=== PATIENT | female | born 1965 | race Caucasian/White ===

== ENCOUNTER 2016-11-15 15:11 | Emergency (ER) | payer BC ==
[~2016-11-15] VITALS: Ht 175.3 cm; Wt 56.7 kg
--- NOTE | 2016-11-15 15:35 | NUR ---
Nursing hands off given to BEVERLY Kaplan.
--- NOTE | 2016-11-15 16:10 | NUR ---
Gave pt RX and d/c instructions, verbalized understanding.
== END 2016-11-15 16:39 | disposition home or self-care (01) ==
LOC: ER 15:12
DX: S06.0X0A Concussion without loss of consciousness, initial encounter (principal); W18.30XA Fall on same level, unspecified, initial encounter; Y93.89 Activity, other specified; Y92.9 Unspecified place or not applicable; Y99.9 Unspecified external cause status
CPT/HCPCS: 70450; A4663

== ENCOUNTER 2017-02-13 14:38 | Inpatient (IN) | payer BC, MEDICAID ==
[~2017-02-13] VITALS: Ht 175.3 cm; Wt 56.7 kg
[2017-02-13] MEDS ORDERED: PANTOPRAZOLE SODIUM 40 MG VIAL IV ONE (15:00)
[2017-02-13] MEDS ORDERED: ONDANSETRON 4 MG/2 ML VIAL IV ONE (15:00)
[2017-02-13] MEDS ORDERED: IV NORMAL SALINE 1000 ML BAG IV ONE (15:00)
--- NOTE | 2017-02-13 15:13 | NUR ---
PT IS IN ROOM #2A. DR LIANG EVALUATED THE PT.
[2017-02-13] MEDS ORDERED: PANTOPRAZOLE SODIUM 40 MG VIAL ONE (15:16)
[2017-02-13] MEDS ORDERED: ONDANSETRON 4 MG/2 ML VIAL ONE ×2 (15:17→19:43)
[2017-02-13 15:27] LABS: BASOPHILS % (AUTO) 1.5 % (0.0-2.0); EOSINOPHILS # (AUTO) 0.1 K/uL (0.0-0.7); EOSINOPHILS % (AUTO) 4.5 % (0.0-7.0); HEMATOCRIT 29.3 % (31.2-41.9); HEMOGLOBIN 9.6 g/dL (10.9-14.3); LYMPHOCYTES # (AUTO) 1.1 K/uL (20.0-40.0); LYMPHOCYTES % (AUTO) 33.5 % (20.5-51.5); MEAN CORPUSCULAR HEMOGLOBIN 26.3 uug (24.7-32.8); MEAN CORPUSCULAR HGB CONC 33 g/dL (32.3-35.6); MEAN CORPUSCULAR VOLUME 80.2 fL (75.5-95.3); MONOCYTES # (AUTO) 0.2 K/uL (2.0-10.0); MONOCYTES % (AUTO) 5.5 % (0.0-11.0); NEUTROPHILS # (AUTO) 1.8 K/uL (1.8-8.9); PLATELET COUNT (AUTO) 205 K/uL (179-408); RED BLOOD CELL COUNT(AUTO) 3.65 MIL/uL (3.63-4.92); WHITE BLOOD COUNT (AUTO) 3.2 K/uL (3.8-11.8)
[2017-02-13 15:44] LABS: CREATININE 0.7 mg/dL (0.6-1.3); POTASSIUM 3.9 mmol/L (3.5-5.1)
[2017-02-13 15:55] LABS: BILIRUBIN,DIRECT 0.1 mg/dL (0.0-0.2); BILIRUBIN,TOTAL 0.2 mg/dL (0.2-1.0)
[2017-02-13] MEDS ORDERED: FAMOTIDINE. 20 MG/2 ML VIAL IV ONE ×2 (16:00→16:21)
[2017-02-13] MEDS ORDERED: HYDROMORPHONE 1 MG/1 ML DISP.SYRIN IV ONE ×3 (16:00→19:30)
--- NOTE | 2017-02-13 16:16 | NUR ---
PT IS IN ROOM #2A. DR LIANG EVALUATED THE PT.
[2017-02-13] MEDS ORDERED: HYDROMORPHONE 2 MG/1 ML DISP.SYRIN ONE ×3 (16:21→19:43)
--- NOTE | 2017-02-13 17:02 | NUR ---
DR ESQUEDA AND DR RAYMUNDO WERE CALLED. DR LIANG TALKED TO THEM TO DISCUSS PT'S DIAGNOSIS.
--- NOTE | 2017-02-13 18:04 | NUR ---
PICC LINE BEVERLY COSTA WAS CALLED. HIS KALPESH IS 1 HOUR. PT IS RESTING IN BED COMFORTABLY. NO S/S OF ACUTE DISTRESS.
--- NOTE | 2017-02-13 18:53 | NUR ---
PICC LINE BEVERLY COSTA INSERTED MIDDLE LINE IN PT'S RIGHT UPPER ARM. PT TOLERATED TO PROCEDURE WITHOUT COMP[LICATIONS.
--- NOTE | 2017-02-13 19:22 | NUR ---
Assumed care of patient. No acute distress noted. Patient states she had an episode of vomiting blood x 1. ER MD aware
--- NOTE | 2017-02-13 19:25 | NUR ---
Assumed care of patient. No acute distress noted.
[2017-02-13] MEDS ORDERED: ONDANSETRON IV *ER 4 MG/2 ML VIAL IV ONE (19:30)
[2017-02-13 20:00] VITALS: BP 101/34
[2017-02-13] MEDS ORDERED: Z GUARD REMEDY PASTE 57 GM TUBE TOP PRN (20:00)
[2017-02-13] MEDS ORDERED: MAGNESIUM HYDROXIDE 30 ML LIQUID UDC PO PRN (20:00)
--- NOTE | 2017-02-13 20:07 | NUR ---
REPORT GIVEN TO MADDISON PAUL ON MED SURG.
--- NOTE | 2017-02-13 20:17 | NUR ---
Pt. admitted to Med Surg , under care of Dr. Oral Castillo Belongs List completed
--- NOTE | 2017-02-13 22:00 | NUR ---
CALLED DR. JOSE ANGEL MARIA REGARDING REQUESTING FOR IV PAIN MEDS, WITH ORDER MORPHINE 2MG IV Q 4 PRN, NOTIFY THE PATIENT OKEYED THE MORPHINE.
[2017-02-13] MEDS: MORPHINE SULFATE 2 MG/1 ML DISP.SYRIN IM PRN (22:30)
[2017-02-13] MEDS: ONDANSETRON 4 MG/2 ML VIAL IV PRN (22:35)
[2017-02-13] MEDS ORDERED: MORPHINE SULFATE 2 MG/1 ML DISP.SYRIN ONE (22:44)
[2017-02-14] MEDS: MORPHINE SULFATE 2 MG/1 ML DISP.SYRIN IM PRN (02:59)
[2017-02-14] MEDS ORDERED: MORPHINE SULFATE 2 MG/1 ML DISP.SYRIN ONE (03:10)
[2017-02-14 05:15] VITALS: BP 91/51
--- NOTE | 2017-02-14 06:46 | NUR ---
PATIENT ALERT ORIENTED ABLE TO MAKE NEEDS, KNOWN, NO FURTHER EPISODE OF NAUSEA NOTED, CONT ON PAIN MANAGEMENT, CONSENT SIGNED FOR EGD, AND REMAINS NPO FOR EGD PROCEDURES, ENDORSED TO AM TO COLLECT URINE. CALL LIGHT WITHIN REACH.
[2017-02-14 07:00] VITALS: BP 95/45
[2017-02-14] MEDS: MORPHINE SULFATE 4 MG/1 ML DISP.SYRIN IM PRN ×4 (07:24→20:20)
[2017-02-14 08:30] LABS: EOSINOPHILS # (AUTO) 0.2 K/uL (0.0-0.7); LYMPHOCYTES # (AUTO) 1.4 K/uL (20.0-40.0); MONOCYTES # (AUTO) 0.2 K/uL (2.0-10.0)
[2017-02-14 08:36] LABS: BASOPHILS % (AUTO) 1.2 % (0.0-2.0); EOSINOPHILS % (AUTO) 6.9 % (0.0-7.0); LYMPHOCYTES % (AUTO) 49.4 % (20.5-51.5); MEAN CORPUSCULAR HEMOGLOBIN 26.3 uug (24.7-32.8); MEAN CORPUSCULAR HGB CONC 33 g/dL (32.3-35.6); MEAN CORPUSCULAR VOLUME 80.9 fL (75.5-95.3); MONOCYTES % (AUTO) 6.2 % (0.0-11.0); NEUTROPHILS # (AUTO) 1.1 K/uL (1.8-8.9); NEUTROPHILS % (AUTO) 36.3 % (38.5-71.5); PLATELET COUNT (AUTO) 158 K/uL (179-408); RED BLOOD CELL COUNT(AUTO) 2.85 MIL/uL (3.63-4.92); WHITE BLOOD COUNT (AUTO) 2.9 K/uL (3.8-11.8)
[2017-02-14 08:45] LABS: HEMATOCRIT 23.1 % (31.2-41.9); HEMOGLOBIN 7.5 g/dL (10.9-14.3)
[2017-02-14 09:01] LABS: BAND % (MANUAL) 1 % (0-10); EOSINOPHILS % (MANUAL) 11 % (0-8); LYMPHOCYTES % (MANUAL) 49 % (20-40); MONOCYTES % (MANUAL) 6 % (2-10); NEUTROPHILS % (MANUAL) 33 % (42-75)
[2017-02-14] MEDS: SUCRALFATE 1 G/10 ML LIQUID UDC PO SCH ×2 (11:52→18:00)
[2017-02-14 12:03] LABS: *BLOOD, URINE NEGATIVE (NEGATIVE); *CLARITY,URINE CLEAR (CLEAR); *COLOR,URINE YELLOW (YELLOW); *KETONES,URINE NEGATIVE (NEGATIVE); *PROTEIN,URINE NEGATIVE (NEGATIVE); *UROBILINOGEN,URINE 0.2 E.U./dl (NORMAL); LEUKOCYTE ESTERASE ,URINE NEGATIVE (NEGATIVE); NITRITE, URINE NEGATIVE (NEGATIVE); UGLUCOSE NEGATIVE (NEGATIVE)
[2017-02-14 12:28] LABS: *BILIRUBIN,URIN 1+ (NEGATIVE)
[2017-02-14 12:33] LABS: BACTERIA,URINE FEW /HPF (NONE SEEN); RBC,URINE 0-3 /HPF (0-3); SQUAMOUS EPITHELIAL CELL,UR MODERATE /HPF (NONE SEEN); WBC,URINE 0-3 /HPF (0-3)
[2017-02-14 13:16] LABS: CREATININE 0.6 mg/dL (0.6-1.3); MAGNESIUM 1.9 mg/dL (1.8-2.4); PHOSPHOROUS 4.6 mg/dL (2.5-4.9); POTASSIUM 3.7 mmol/L (3.5-5.1)
[2017-02-14 13:30] VITALS: BP 105/55
[2017-02-14] MEDS: ONDANSETRON 4 MG/2 ML VIAL IV PRN ×2 (15:00→20:19)
[2017-02-14 15:30] VITALS: BP 108/61
[2017-02-14] MEDS ORDERED: LIDOCAINE HCL 2% 20 ML VIAL MC ONE (15:57)
[2017-02-14] MEDS ORDERED: IV NORMAL SALINE 1000 ML BAG IV ONE (15:57)
[2017-02-14] MEDS ORDERED: PROPOFOL 200 MG/20 ML BOTTLE IV ONE (15:57)
[2017-02-14 20:00] VITALS: BP 105/67
[2017-02-14] MEDS: PANTOPRAZOLE SODIUM 40 MG VIAL IV SCH (21:00)
[2017-02-14 23:50] VITALS: BP 98/58
[2017-02-15] MEDS: MORPHINE SULFATE 4 MG/1 ML DISP.SYRIN IM PRN ×6 (00:08→21:11)
[2017-02-15 00:10] VITALS: BP 104/60
[2017-02-15] MEDS: SUCRALFATE 1 G/10 ML LIQUID UDC PO SCH ×4 (00:51→17:17)
[2017-02-15 02:30] VITALS: BP 102/60
[2017-02-15] MEDS: HYDROCODONE/APAP 5-325MG TABLET PO PRN (05:47)
--- NOTE | 2017-02-15 05:48 | NUR ---
remain c/o abd pain 6-10 after given m/s 2g ivp at 0400 given one tab norco po. denies n/v at this time.Given 1 unit of prbc. am labs drawn from midline by Rn. remains on clear liquid diet.
[2017-02-15 06:56] LABS: BASOPHILS % (AUTO) 1.2 % (0.0-2.0); EOSINOPHILS # (AUTO) 0.2 K/uL (0.0-0.7); EOSINOPHILS % (AUTO) 5.3 % (0.0-7.0); LYMPHOCYTES # (AUTO) 1.3 K/uL (20.0-40.0); LYMPHOCYTES % (AUTO) 41.9 % (20.5-51.5); MEAN CORPUSCULAR HEMOGLOBIN 26.4 uug (24.7-32.8); MEAN CORPUSCULAR HGB CONC 33 g/dL (32.3-35.6); MEAN CORPUSCULAR VOLUME 80.3 fL (75.5-95.3); MONOCYTES # (AUTO) 0.2 K/uL (2.0-10.0); MONOCYTES % (AUTO) 7.3 % (0.0-11.0); NEUTROPHILS # (AUTO) 1.4 K/uL (1.8-8.9); NEUTROPHILS % (AUTO) 44.3 % (38.5-71.5); PLATELET COUNT (AUTO) 161 K/uL (179-408); WHITE BLOOD COUNT (AUTO) 3.2 K/uL (3.8-11.8)
[2017-02-15 06:58] VITALS: BP 106/57
[2017-02-15 06:59] LABS: CREATININE 0.6 mg/dL (0.6-1.3); MAGNESIUM 1.8 mg/dL (1.8-2.4); PHOSPHOROUS 4.2 mg/dL (2.5-4.9); POTASSIUM 3.3 mmol/L (3.5-5.1)
[2017-02-15 07:11] LABS: HEMATOCRIT 27.3 % (31.2-41.9)
[2017-02-15] MEDS: PANTOPRAZOLE SODIUM 40 MG VIAL IV SCH (08:23)
--- NOTE | 2017-02-15 08:24 | NUR ---
Protonix not given due to patient stating she gets swollen throat and SOB from previous Protonix given.
[2017-02-15] MEDS ORDERED: POTASSIUM CHLORIDE 20 MEQ TAB.PRT.SR PO ONE (10:30)
[2017-02-15] MEDS: FAMOTIDINE. 20 MG/2 ML VIAL IV SCH ×2 (11:00→21:11)
[2017-02-15] MEDS: ALPRAZOLAM 0.5 MG TABLET PO PRN ×2 (11:00→21:28)
[2017-02-15 11:44] VITALS: BP 124/67
[2017-02-15] MEDS: OCTREOTIDE ACETATE DRIP 1,250 MCG in IV NORMAL SALINE 247.5 ML IV PRN (11:48)
[2017-02-15 15:49] VITALS: BP 93/58
--- NOTE | 2017-02-15 16:33 | NUR ---
CONTINUE WITH SANDOSTATIN DRIP, CLOSELY MONITORED FOR BLEEDING
[2017-02-15 20:45] VITALS: BP 106/67
[2017-02-15] MEDS ORDERED: PANTOPRAZOLE SODIUM 40 MG VIAL IV SCH (21:00)
[2017-02-16] MEDS: SUCRALFATE 1 G/10 ML LIQUID UDC PO SCH ×5 (00:13→23:46)
[2017-02-16] MEDS: MORPHINE SULFATE 4 MG/1 ML DISP.SYRIN IM PRN ×3 (01:24→08:37)
--- NOTE | 2017-02-16 03:28 | NUR ---
SLEPT AT LONG INTERVALS.MEDICATED WITH MORPHINE 2 MG Q 4 HOURS.IN NO ACUTE DISTRESS.SANDOSTATIN INFUSING AT 10 CC /HR.
[2017-02-16 04:00] VITALS: BP 110/64
[2017-02-16] MEDS: ALPRAZOLAM 0.5 MG TABLET PO PRN ×3 (06:27→20:50)
[2017-02-16 07:16] LABS: BASOPHILS % (AUTO) 1.2 % (0.0-2.0); EOSINOPHILS # (AUTO) 0.2 K/uL (0.0-0.7); EOSINOPHILS % (AUTO) 4.3 % (0.0-7.0); HEMATOCRIT 29.4 % (31.2-41.9); HEMOGLOBIN 9.4 g/dL (10.9-14.3); LYMPHOCYTES % (AUTO) 25.8 % (20.5-51.5); MEAN CORPUSCULAR HGB CONC 32 g/dL (32.3-35.6); MEAN CORPUSCULAR VOLUME 81.4 fL (75.5-95.3); MONOCYTES # (AUTO) 0.3 K/uL (2.0-10.0); MONOCYTES % (AUTO) 7.2 % (0.0-11.0); NEUTROPHILS # (AUTO) 2.4 K/uL (1.8-8.9); NEUTROPHILS % (AUTO) 61.5 % (38.5-71.5); PLATELET COUNT (AUTO) 156 K/uL (179-408); RED BLOOD CELL COUNT(AUTO) 3.61 MIL/uL (3.63-4.92); WHITE BLOOD COUNT (AUTO) 3.9 K/uL (3.8-11.8)
[2017-02-16 07:30] LABS: CREATININE 0.7 mg/dL (0.6-1.3)
--- NOTE | 2017-02-16 08:00 | NUR ---
STILL C/O OF ON AND OFF ABDOMINAL PAIN AND VOMITING BLOOD. CONTINUE PAIN MGT AND OBSERVATION
[2017-02-16] MEDS: FAMOTIDINE. 20 MG/2 ML VIAL IV SCH ×2 (08:33→20:50)
--- NOTE | 2017-02-16 11:00 | NUR ---
SEEN BY SOFTWARE QUALITY ANALYST HOSPITALIST WITH ORDERS
[2017-02-16] MEDS ORDERED: VASOPRESSIN 50 UNIT in IV DEXTROSE 5% 500 ML IV PRN (11:45)
[2017-02-16 11:49] VITALS: BP 119/72
[2017-02-16] MEDS: HYDROMORPHONE 1 MG/1 ML DISP.SYRIN IV PRN ×6 (12:33→23:58)
[2017-02-16] MEDS: OCTREOTIDE ACETATE DRIP 1,250 MCG in IV NORMAL SALINE 247.5 ML IV PRN (12:34)
--- NOTE | 2017-02-16 13:36 | NUR ---
DR HANDY NOTIFIED OF PT STILL VOMITING BLOOD AND SEVER PAIN OVER ABDOMEN WITH ORDERS. KEPT NPO, CONSENT FOR EGD IN AM AND WILL START LR AT 75 ML/HR. NURSING CURTAIN ROLLER ASSEMBLER NOTIFIED
[2017-02-16] MEDS: IV LACTATED RINGERS SOLUTION 1,000 ML IV PRN (14:31)
[2017-02-16 16:00] VITALS: BP 112/59
[2017-02-16 17:30] LABS: BASOPHILS % (AUTO) 1.2 % (0.0-2.0); EOSINOPHILS # (AUTO) 0.2 K/uL (0.0-0.7); HEMATOCRIT 28.1 % (31.2-41.9); HEMOGLOBIN 8.9 g/dL (10.9-14.3); LYMPHOCYTES # (AUTO) 1.3 K/uL (20.0-40.0); MEAN CORPUSCULAR HEMOGLOBIN 25.6 uug (24.7-32.8); MEAN CORPUSCULAR HGB CONC 32 g/dL (32.3-35.6); MEAN CORPUSCULAR VOLUME 81.2 fL (75.5-95.3); MONOCYTES # (AUTO) 0.3 K/uL (2.0-10.0); MONOCYTES % (AUTO) 7.9 % (0.0-11.0); NEUTROPHILS # (AUTO) 1.5 K/uL (1.8-8.9); NEUTROPHILS % (AUTO) 46.9 % (38.5-71.5); PLATELET COUNT (AUTO) 152 K/uL (179-408); RED BLOOD CELL COUNT(AUTO) 3.46 MIL/uL (3.63-4.92); WHITE BLOOD COUNT (AUTO) 3.3 K/uL (3.8-11.8)
--- NOTE | 2017-02-16 18:33 | NUR ---
KEPT NPO FOR EGD IN AM AT [address] HANDY
[2017-02-16 20:00] VITALS: BP 121/64
[2017-02-16] MEDS: ONDANSETRON 4 MG/2 ML VIAL IV PRN (23:47)
[2017-02-17] VITALS (7 sets, daily range): BP systolic 99–112; BP diastolic 28–76
[2017-02-17] MEDS: HYDROMORPHONE 1 MG/1 ML DISP.SYRIN IV PRN ×8 (02:06→22:38)
[2017-02-17] MEDS: ALPRAZOLAM 0.5 MG TABLET PO PRN ×4 (04:05→23:22)
[2017-02-17] MEDS: IV LACTATED RINGERS SOLUTION 1,000 ML IV PRN ×3 (04:15→22:53)
[2017-02-17] MEDS: SUCRALFATE 1 G/10 ML LIQUID UDC PO SCH ×3 (06:00→18:00)
--- NOTE | 2017-02-17 06:39 | NUR ---
PATIENT WAS AWAKE FOR MOST OF THE NIGHT. REQUESTED DILAUDID IV Q2 HOURS FOR ABDOMINAL PAIN. PATIENT WAS ALSO AMBULATING INDEPENDENTLY AROUND THE UNIT EVERY 2 HOURS. AT TIMES PATIENT WAS REQUESTING PAIN MEDICATION 15-30 MINUTES AFTER ADMINISTRATION. PATIENT STATES PAIN WAS CONSISTENTLY AROUND 8-9 OUT OF 10. MOST TIMES PATIENT WAS USING HER CELL PHONE OR AMBULATING THE HALLS WITHOUT PROBLEM. NONVERBAL PAIN CUES INCLUDED FACIAL GRIMACING AND OCCASIONAL MOANING FROM THE PATIENT. PATIENT HAD 3 EPISODES OF VOMITING BRIGHT RED BLOOD. ZOFRAN WAS ADMINISTERED AND WAS EFFECTIVE FOR ABOUT 3 HOURS BEFORE PATIENT STARTED VOMITING AGAIN. PATIENT FELL ASLEEP AT APPROXIMATELY 0530 AND CONTINUES TO BE ASLEEP AT THIS TIME. VITAL SIGNS STABLE. WILL HAVE EGD PROCEDURE AT 0900.
[2017-02-17] MEDS: FAMOTIDINE. 20 MG/2 ML VIAL IV SCH ×2 (08:47→20:46)
[2017-02-17 08:59] LABS: CREATININE 0.7 mg/dL (0.6-1.3); PHOSPHOROUS 4.6 mg/dL (2.5-4.9); POTASSIUM 3.9 mmol/L (3.5-5.1)
[2017-02-17 09:16] LABS: EOSINOPHILS # (AUTO) 0.1 K/uL (0.0-0.7); HEMOGLOBIN 8.4 g/dL (10.9-14.3); MEAN CORPUSCULAR VOLUME 81.3 fL (75.5-95.3); MONOCYTES # (AUTO) 0.2 K/uL (2.0-10.0); PLATELET COUNT (AUTO) 140 K/uL (179-408)
[2017-02-17 09:31] LABS: EOSINOPHILS % (AUTO) 5.3 % (0.0-7.0); HEMATOCRIT 25.9 % (31.2-41.9); LYMPHOCYTES % (AUTO) 43.6 % (20.5-51.5); MEAN CORPUSCULAR HEMOGLOBIN 26.3 uug (24.7-32.8); MEAN CORPUSCULAR HGB CONC 32 g/dL (32.3-35.6); MONOCYTES % (AUTO) 8.6 % (0.0-11.0); NEUTROPHILS % (AUTO) 41.5 % (38.5-71.5); RED BLOOD CELL COUNT(AUTO) 3.19 MIL/uL (3.63-4.92)
[2017-02-17 09:32] LABS: WHITE BLOOD COUNT (AUTO) 2.4 K/uL (3.8-11.8)
[2017-02-17 12:50] LABS: BASOPHILS % (MANUAL) 1 % (0-2); EOSINOPHILS % (MANUAL) 2 % (0-8); LYMPHOCYTES % (MANUAL) 41 % (20-40); METAMYELOCYTES % 1 % (0-1); MONOCYTES % (MANUAL) 9 % (2-10); NEUTROPHILS % (MANUAL) 46 % (42-75)
[2017-02-17] MEDS: ONDANSETRON 4 MG/2 ML VIAL IV PRN (13:02)
[2017-02-17] MEDS: OCTREOTIDE ACETATE DRIP 1,250 MCG in IV NORMAL SALINE 247.5 ML IV PRN (14:34)
--- NOTE | 2017-02-17 15:00 | NUR ---
Nurses Note: Patient was nauseous, and she vomited in toilet. SPRINKLER FITTER APPRENTICE Maribel observed the vomit, she states it was bright red blood, she flushed the vomit. CBC is ordered stat. Patient was having watery stools this morning, prior to going to EGD. Patient had EGD with cauterization. Vital signs was stable. Addendum: 02/17/17 at 2011 by ERICA LUCIA RN SPRINKLER FITTER APPRENTICE was Bridgette Gonsalez that observed the bloody emesis. Not Maribel.
[2017-02-17] MEDS ORDERED: HYDROMORPHONE 2 MG/1 ML DISP.SYRIN IV ONE (16:15)
[2017-02-17] MEDS ORDERED: FAMOTIDINE. 20 MG/2 ML VIAL IV SCH (16:15)
[2017-02-17 18:49] LABS: BASOPHILS % (AUTO) 0.9 % (0.0-2.0); EOSINOPHILS # (AUTO) 0.1 K/uL (0.0-0.7); EOSINOPHILS % (AUTO) 3.6 % (0.0-7.0); HEMATOCRIT 23.9 % (31.2-41.9); HEMOGLOBIN 7.8 g/dL (10.9-14.3); LYMPHOCYTES # (AUTO) 0.8 K/uL (20.0-40.0); LYMPHOCYTES % (AUTO) 25.8 % (20.5-51.5); MEAN CORPUSCULAR HEMOGLOBIN 26.4 uug (24.7-32.8); MEAN CORPUSCULAR HGB CONC 33 g/dL (32.3-35.6); MEAN CORPUSCULAR VOLUME 80.5 fL (75.5-95.3); MONOCYTES # (AUTO) 0.2 K/uL (2.0-10.0); MONOCYTES % (AUTO) 7.5 % (0.0-11.0); NEUTROPHILS % (AUTO) 62.2 % (38.5-71.5); PLATELET COUNT (AUTO) 133 K/uL (179-408); RED BLOOD CELL COUNT(AUTO) 2.96 MIL/uL (3.63-4.92); WHITE BLOOD COUNT (AUTO) 3.2 K/uL (3.8-11.8)
--- NOTE | 2017-02-17 19:40 | NUR ---
Nurses Notes: Patient's pain is 8/10, lessen when not vomiting, medicated with Dilaudid 1 mg IV push, slowly over few minutes, Patient is not nauseous, but asking for apple juice. Patient to have clear liquids, and advance to regular diet tomorrow. Remains on IV Lactated Ringers at 75 cc per hour, Octreotide is infusing at 10 cc per hour. Patient is refusing Carafate, patient states anything taken by mouth, she will vomit.
--- NOTE | 2017-02-17 20:00 | NUR ---
PT AWAKE, ALERT AND ORIENTED. PT SAID SHE'S IN PAIN. VITAL SIGNS WNL. IV SITE INTACT AND PATENT. CALL LIGHT WITHIN REACH. SAFETY AND COMFORT PROVIDED.
--- NOTE | 2017-02-17 20:50 | NUR ---
CALLED ON THE PHONE TO CHECKUP ON THE PT. HE ALSO TALKED TO THE PT. TOLD ME TO GIVE XANAX Q6H PRN. WILL CONTINUE TO MONITOR THE PT.
[2017-02-18] VITALS (8 sets, daily range): BP systolic 102–126; BP diastolic 42–74
[2017-02-18] MEDS: SUCRALFATE 1 G/10 ML LIQUID UDC PO SCH ×5 (00:44→23:43)
[2017-02-18] MEDS: HYDROMORPHONE 1 MG/1 ML DISP.SYRIN IV PRN ×10 (00:55→23:37)
[2017-02-18] MEDS: ALPRAZOLAM 0.5 MG TABLET PO PRN ×4 (02:57→21:53)
--- NOTE | 2017-02-18 07:00 | NUR ---
PT ASK FOR PAIN MEDS. SHOWS NO SIGNS OF DISTRESS. ENDORSED TO DAYSHIFT NURSE.
--- NOTE | 2017-02-18 07:30 | NUR ---
RECEIVED PATIENT ON BEDF ASLEEP, A AND O X 4 NO ACUTED DISTRESS NOTED. HAS MIDLINE ON THE LEFT UPPER ARM AND IV ACCESS ON THE LEFT HAND, BOTH INTACT AND PATENT. C/O LOWER STOMACH PAIN HAS DILAUDID IV PRN Q 2HRS. ALL COMFORT MEASURES PROVIDED. ALL NEEDS ANTICIPATED AND ATTENDED. CALL LIGHT WITHIN REACH AND ANSWERED IN A TIMELY MANNER. WILL CONTINUE TO MONITOR CLOSELY.
[2017-02-18] MEDS: FAMOTIDINE. 20 MG/2 ML VIAL IV SCH ×2 (08:13→20:29)
[2017-02-18] MEDS: IV LACTATED RINGERS SOLUTION 1,000 ML IV PRN (13:58)
[2017-02-18] MEDS: ACETAMINOPHEN 325 MG TABLET PO PRN (20:41)
[2017-02-18] MEDS: OCTREOTIDE ACETATE DRIP 1,250 MCG in IV NORMAL SALINE 247.5 ML IV PRN (21:04)
--- NOTE | 2017-02-18 22:10 | NUR ---
PT'S A/A/O X4;DENIED OF PAIN OR ANY DISCOMFORT.PT'S ON SANDOSTATIN( RECORD) AT RIGHT HAND AND STARTED PRBC 1 UNIT TRANSFUSION AT MID-LINE @ RT.UPPER ARM ( ORDER )AT THIS TIME;EDUCATED TO PT;SHE VERBALIZED UNDERSTANDING AND COOPERATIVE NOTED.NO N/V WAS SEEN AT THIS TIME.CONTINUED MONITORING TO PT.PAIN MANAGEMENT.UPDATED THE PLAN OF CARE TO PT;SHE VERBALIZED UNDERSTANDING AND COOPERATIVE NOTED.
[2017-02-19] MEDS: ONDANSETRON 4 MG/2 ML VIAL IV PRN ×2 (01:37→20:00)
[2017-02-19] MEDS: HYDROMORPHONE 1 MG/1 ML DISP.SYRIN IV PRN ×6 (01:38→20:00)
[2017-02-19 01:45] VITALS: BP 115/65
--- NOTE | 2017-02-19 01:45 | NUR ---
BLOOD TRANSFUSION OF PRBC 1 UNIT WAS DONE AT THIS TIME;PT TOLERATED WELL NOTED.KEPT COMFORT.MAINTAINED IVF W/LR AND PT'S ON SANDOSTATIN (TOTAL X2 LINES) NOTED.CALL-LIGHT WITHIN REACH.
[2017-02-19 04:52] VITALS: BP 128/77
[2017-02-19] MEDS: SUCRALFATE 1 G/10 ML LIQUID UDC PO SCH ×5 (05:38→23:10)
[2017-02-19] MEDS: IV LACTATED RINGERS SOLUTION 1,000 ML IV PRN (06:09)
--- NOTE | 2017-02-19 06:30 | NUR ---
PT'S COMFORTABLE ON BED AT THIS TIME.NO DISTRESS NOTED IN THE SHIFT.PAIN'S CONTROLLED IN THE SHIFT MD'S ORDER TO GET DILAUDID Q 2HOURS(SEE RECORD).PT HAD NAUSEA/VOMITING X1 IN THE SHIFT NOTED.
--- NOTE | 2017-02-19 07:30 | NUR ---
RECEIVED PATIENT ON BED ASLLEP A AND O X 4 NO ACUTE DISTRESS NOTED. WITH MIDLINE ON FAWN AND PERIPHERAL LINE ON RH #22 BOTH INTACT AND PATENT. INDEPENDENT WITH NEEDS AND ADL'S COMPLAINS OF LOWER ABDOMINAL PAIN, WITH DILAUDID 1MG Q2 PRN. COMPLAINS OF SOME NAUSEA ALL COMFORT MEASURES PROVIDED. ALL NEEDS ATTENDED AND ANTICIPATED. CALL LIGHT WITHIN REACH AND ANSWERED IN A TIMELY MANNER. WILL CONTINUE TO MONITOR CLOSELY
[2017-02-19] MEDS: FAMOTIDINE. 20 MG/2 ML VIAL IV SCH ×2 (08:31→20:03)
[2017-02-19 09:30] LABS: BILIRUBIN,TOTAL 0.7 mg/dL (0.2-1.0); CREATININE 0.8 mg/dL (0.6-1.3); MAGNESIUM 1.4 mg/dL (1.8-2.4); PHOSPHOROUS 2.2 mg/dL (2.5-4.9); POTASSIUM 2.9 mmol/L (3.5-5.1); TOTAL PROTEIN, SERUM 5.9 g/dL (6.4-8.2)
[2017-02-19 10:01] LABS: BASOPHILS % (AUTO) 0.6 % (0.0-2.0); EOSINOPHILS % (AUTO) 0.5 % (0.0-7.0); LYMPHOCYTES # (AUTO) 0.3 K/uL (20.0-40.0); LYMPHOCYTES % (AUTO) 5.7 % (20.5-51.5); MEAN CORPUSCULAR HEMOGLOBIN 26.9 uug (24.7-32.8); MEAN CORPUSCULAR HGB CONC 33 g/dL (32.3-35.6); MEAN CORPUSCULAR VOLUME 81.1 fL (75.5-95.3); MONOCYTES # (AUTO) 0.2 K/uL (2.0-10.0); MONOCYTES % (AUTO) 3.3 % (0.0-11.0); NEUTROPHILS # (AUTO) 4.2 K/uL (1.8-8.9); NEUTROPHILS % (AUTO) 89.9 % (38.5-71.5); PLATELET COUNT (AUTO) 105 K/uL (179-408); RED BLOOD CELL COUNT(AUTO) 3.84 MIL/uL (3.63-4.92)
[2017-02-19 10:13] LABS: HEMOGLOBIN 10.3 g/dL (10.9-14.3); WHITE BLOOD COUNT (AUTO) 4.7 K/uL (3.8-11.8)
[2017-02-19 10:14] LABS: HEMATOCRIT 31.2 % (31.2-41.9)
--- NOTE | 2017-02-19 10:39 | NUR ---
PATIENT NOTED WITH TEMPERATURE OF 103.6F, INFORMED DR. HERNANDEZ, WITH ORDERS FOR CXR, UA, URINE CULTURE, RAPID INFLUENZA. NOTED AND CARRIED OUT.
[2017-02-19] MEDS ORDERED: ACETAMINOPHEN 650 MG SUPP.RECT RC PRN (11:15)
[2017-02-19 11:45] VITALS: BP 102/58
[2017-02-19] MEDS: MAGNESIUM SULFATE/D5W 100 ML IV SCH ×3 (13:32→15:22)
[2017-02-19] MEDS: POTASSIUM PHOSPHATE MM 5 MMOL in IV DEXTROSE 5% 100 ML IV SCH ×4 (13:32→23:11)
[2017-02-19] MEDS: ALPRAZOLAM 0.5 MG TABLET PO PRN ×2 (13:51→21:31)
--- NOTE | 2017-02-19 14:30 | NUR ---
LAB ROBYN BLOOD SPECIMEN FOR BLOOD CULTURE AND OTHER PERTINENT LABS.
[2017-02-19 15:47] VITALS: BP 88/38
--- NOTE | 2017-02-19 16:02 | NUR ---
patient noted with temperature of 102.3F administered tylenol 650mg suppository. Will continiue to monitor.
--- NOTE | 2017-02-19 17:48 | NUR ---
Spoke with RN regarding advancement of diet NPO for the past 3 days, patient asking for food Patient on K repletion, IV dextrose Recommend start full liquid diet if passes swallow evaluation and ok per Monitor leatha Addendum: 02/21/17 at [address] Amended: Links added.
[2017-02-19] MEDS: OCTREOTIDE ACETATE DRIP 1,250 MCG in IV NORMAL SALINE 247.5 ML IV PRN (18:36)
[2017-02-19 18:40] LABS: *BILIRUBIN,URIN NEGATIVE (NEGATIVE); *BLOOD, URINE NEGATIVE (NEGATIVE); *CLARITY,URINE CLEAR (CLEAR); *COLOR,URINE YELLOW (YELLOW); *KETONES,URINE NEGATIVE (NEGATIVE); *PROTEIN,URINE NEGATIVE (NEGATIVE); LEUKOCYTE ESTERASE ,URINE NEGATIVE (NEGATIVE); NITRITE, URINE NEGATIVE (NEGATIVE); UGLUCOSE NEGATIVE (NEGATIVE)
[2017-02-19] MEDS ORDERED: IV NORMAL SALINE 500 ML IV ONE (19:00)
[2017-02-19 19:06] LABS: MUCUS,URINE FEW /LPF (0-FEW); SQUAMOUS EPITHELIAL CELL,UR MODERATE /HPF (NONE SEEN); WBC,URINE 0-3 /HPF (0-3)
--- NOTE | 2017-02-19 19:30 | NUR ---
nsg: pt vomitted dark red blood, 100ml notified Dr. Raines. no new order received.
[2017-02-19 20:30] VITALS: BP 91/67
--- NOTE | 2017-02-20 00:20 | NUR ---
nsg: pt has a temp of 102.2F oral. medicated with tylenol 650mg po. applied cooling measures. will recheck temp.
[2017-02-20 00:25] VITALS: BP 103/48
[2017-02-20] MEDS: ACETAMINOPHEN 325 MG TABLET PO PRN ×2 (00:27→11:17)
[2017-02-20] MEDS: HYDROMORPHONE 1 MG/1 ML DISP.SYRIN IV PRN ×8 (00:27→18:55)
[2017-02-20] MEDS: IV LACTATED RINGERS SOLUTION 1,000 ML IV PRN (02:37)
[2017-02-20 04:00] VITALS: BP 101/57
--- NOTE | 2017-02-20 05:55 | NUR ---
nsg: pt comfortable sleeping. received dilaudid 0.5mg ivp x 4 doses throughout this shift. bp low 100's sbp. still npo except meds. vomitted dark red blood x 1. cont to monitor.
[2017-02-20] MEDS: SUCRALFATE 1 G/10 ML LIQUID UDC PO SCH ×3 (06:45→17:55)
[2017-02-20] MEDS ORDERED: BARIUM SULFATE 450 ML ORAL.SUSP ONE (07:09)
[2017-02-20] MEDS ORDERED: IV NORMAL SALINE 250 ML IV ONE (07:18)
[2017-02-20] MEDS ORDERED: IOHEXOL 300MG/ML 100 ML INFUS..BTL ONE (07:18)
[2017-02-20] MEDS: FAMOTIDINE. 20 MG/2 ML VIAL IV SCH ×2 (08:03→20:59)
[2017-02-20] MEDS: ALPRAZOLAM 0.5 MG TABLET PO PRN ×2 (08:43→16:04)
--- NOTE | 2017-02-20 09:00 | NUR ---
Pt left the floor for CT abd/pelvis with radiology via wheelchair. Pt stable and nad upon leaving the floor.
--- NOTE | 2017-02-20 09:30 | NUR ---
Pt returned to the floor from CT abd/pelvis. Pt stable and nad noted upon returning to the floor.
[2017-02-20] MEDS ORDERED: PROPOFOL 200 MG/20 ML BOTTLE IV ONE (09:40)
[2017-02-20] MEDS ORDERED: LIDOCAINE HCL 2% 20 ML VIAL MC ONE (09:40)
[2017-02-20 11:39] VITALS: BP 115/63
--- NOTE | 2017-02-20 13:07 | NUR ---
PHARMACY CLINICAL NOTES (VANCOMYCIN DOSING) S: 51 YO female admitted for GI bleed; MD ordered IV vancomycin and Zosyn for suspected infection O: BUN/SCR 8/0.8; WBC 4.7, TEMP 102 , DOSING WT 125 LBS A/P: Will dose Vancomycin as 1 gm IVPB q16h with estimated peak and trough of 40 and 16. will continue to monitor renal fxn and adjust the dose if it becomes necessary.
[2017-02-20] MEDS: OXYCODONE HCL 20 MG TAB.SR.12H PO SCH ×2 (14:06→21:00)
[2017-02-20] MEDS: PIPERACILLIN/TAZOBACTAM/D5W 50 ML IV SCH ×2 (14:07→17:55)
[2017-02-20] MEDS: VANCOMYCIN IV 1,000 MG in IV DEXTROSE 5% 250 ML IV SCH (15:55)
[2017-02-20 16:08] VITALS: BP 94/61
--- NOTE | 2017-02-20 19:48 | NUR ---
NSG: PT received a/o x 4, still c/o abd pain, 5/10 at this time. denies n/v. on cont ivf with LR at 75ml/hr via midline on right upper arm. ambulatory. still npo except meds. cont to monitor.
[2017-02-20 20:00] VITALS: BP 90/51
[2017-02-20] MEDS: IV D5/ 0.9% NACL 1,000 ML IV SCH (20:59)
--- NOTE | 2017-02-20 21:38 | NUR ---
nsg: oxycontin not given bec bp low sbp 77, started on d5ns at 90ml/hr. will recheck bp
[2017-02-20 21:50] VITALS: BP 102/67
[2017-02-21] MEDS: PIPERACILLIN/TAZOBACTAM/D5W 50 ML IV SCH ×4 (00:44→20:33)
[2017-02-21] MEDS: SUCRALFATE 1 G/10 ML LIQUID UDC PO SCH ×5 (00:44→23:44)
[2017-02-21] MEDS: HYDROMORPHONE 1 MG/1 ML DISP.SYRIN IV PRN ×7 (00:44→23:44)
[2017-02-21] MEDS: ALPRAZOLAM 0.5 MG TABLET PO PRN ×3 (05:26→20:32)
[2017-02-21] MEDS: VANCOMYCIN IV 1,000 MG in IV DEXTROSE 5% 250 ML IV SCH ×2 (05:26→22:52)
[2017-02-21 06:19] VITALS: BP 117/79
[2017-02-21 08:21] LABS: EOSINOPHILS # (AUTO) 0.2 K/uL (0.0-0.7); MONOCYTES # (AUTO) 0.2 K/uL (2.0-10.0); NEUTROPHILS # (AUTO) 1.6 K/uL (1.8-8.9)
[2017-02-21] MEDS: OXYCODONE HCL 20 MG TAB.SR.12H PO SCH ×2 (08:31→20:27)
[2017-02-21] MEDS: FAMOTIDINE. 20 MG/2 ML VIAL IV SCH (08:31)
[2017-02-21] MEDS: IV D5/ 0.9% NACL 1,000 ML IV SCH ×2 (08:36→20:34)
[2017-02-21 08:44] LABS: BILIRUBIN,TOTAL 0.4 mg/dL (0.2-1.0); CREATININE 0.7 mg/dL (0.6-1.3); MAGNESIUM 2.2 mg/dL (1.8-2.4); PHOSPHOROUS 1.7 mg/dL (2.5-4.9); POTASSIUM 3.3 mmol/L (3.5-5.1); TOTAL PROTEIN, SERUM 5.7 g/dL (6.4-8.2)
[2017-02-21 08:51] LABS: BASOPHILS % (AUTO) 0.7 % (0.0-2.0); EOSINOPHILS % (AUTO) 6.6 % (0.0-7.0); HEMATOCRIT 33.7 % (31.2-41.9); LYMPHOCYTES # (AUTO) 0.7 K/uL (20.0-40.0); LYMPHOCYTES % (AUTO) 27.5 % (20.5-51.5); MEAN CORPUSCULAR HGB CONC 33 g/dL (32.3-35.6); MEAN CORPUSCULAR VOLUME 82.8 fL (75.5-95.3); MONOCYTES % (AUTO) 7.6 % (0.0-11.0); NEUTROPHILS % (AUTO) 57.6 % (38.5-71.5); PLATELET COUNT (AUTO) 83 K/uL (179-408); RED BLOOD CELL COUNT(AUTO) 4.07 MIL/uL (3.63-4.92); WHITE BLOOD COUNT (AUTO) 2.7 K/uL (3.8-11.8)
--- NOTE | 2017-02-21 10:00 | NUR ---
pt seen on rounding. pt continues to be alert and oriented. pt had no signs of bleeding or vomiting. pt continues to hask for pain meds. pt took pills whole. bp is decreased.will continue to monitor.
[2017-02-21 11:16] VITALS: BP 95/65
[2017-02-21 11:29] LABS: BAND % (MANUAL) 7 % (0-10); EOSINOPHILS % (MANUAL) 7 % (0-8); LYMPHOCYTES % (MANUAL) 33 % (20-40); MONOCYTES % (MANUAL) 6 % (2-10); NEUTROPHILS % (MANUAL) 47 % (42-75)
--- NOTE | 2017-02-21 12:58 | NUR ---
PHARMACY CLINICAL NOTES (VANCOMYCIN DOSING) S: 51 YO female admitted for GI bleed; ordered IV vancomycin and Zosyn for suspected infection(no indication yet on 02/21) O: BUN/SCR 9/0.7; WBC 2.7, TEMP 98.8 , DOSING WT 125 LBS A/P: Will continue Vancomycin 1 gm IVPB q16h with estimated peak and trough of 40 and 16(2nd dose given today 0526). Trough by 4th dose(not ordered yet). Will continue to monitor renal fxn and adjust the dose if it becomes necessary.
[2017-02-21] MEDS: POTASSIUM PHOSPHATE MM 7.5 MMOL in IV DEXTROSE 5% 100 ML IV SCH ×2 (14:40→17:44)
[2017-02-21 15:11] VITALS: BP 98/65
[2017-02-21] MEDS: HYDROCODONE/APAP 5-325MG TABLET PO PRN (17:10)
[2017-02-21] MEDS ORDERED: HYDROMORPHONE 1 MG/1 ML DISP.SYRIN IM ONE (18:15)
--- NOTE | 2017-02-21 19:35 | NUR ---
PT RECEIVED IN BED, AWAKE. A/OX4. ABLE TO MAKE NEEDS KNOWN. V/S STABLE. IN NO ACUTE DISTRESS. PT C/O OF LOWER ABDOMINAL PAIN 10/20 AT THIS TIME. WILL ADMIN PAIN MEDICATION ORDERED. IV POTASSIUM INFUSING. IN RA, TOLERATING WELL. AFEBRILE. SAFETY MEASURES IMPLEMENTED. CALL LIGHT WITHIN REACH.
[2017-02-21 20:00] VITALS: BP 110/70
[2017-02-21] MEDS: FAMOTIDINE 20 MG TABLET PO SCH (20:27)
[2017-02-22] VITALS (7 sets, daily range): BP systolic 70–115; BP diastolic 37–79
[2017-02-22] MEDS: PIPERACILLIN/TAZOBACTAM/D5W 50 ML IV SCH ×2 (01:01→06:25)
[2017-02-22] MEDS: ACETAMINOPHEN 325 MG TABLET PO PRN (01:01)
[2017-02-22] MEDS: HYDROCODONE/APAP 5-325MG TABLET PO PRN ×2 (01:06→11:19)
[2017-02-22] MEDS: ONDANSETRON 4 MG/2 ML VIAL IV PRN ×2 (01:14→08:42)
[2017-02-22] MEDS: HYDROMORPHONE 1 MG/1 ML DISP.SYRIN IV PRN ×2 (02:53→06:26)
[2017-02-22] MEDS: ALPRAZOLAM 0.5 MG TABLET PO PRN ×2 (04:24→08:47)
[2017-02-22] MEDS: IV D5/ 0.9% NACL 1,000 ML IV SCH ×2 (06:06→11:23)
--- NOTE | 2017-02-22 06:15 | NUR ---
END OF SHIFT NOTES. PT SLEPT INTERMITTENTLY THROUGHOUT SHIFT. IN STABLE CONDITION. IV ABX INFUSED. IV POTASSIUM UNFUSED. INF INFUSING. ON RA, TOLERATING WELL. PT PAIN MANAGED THROUGHOUT SHIFT. CONT ON FULL LIQUID TOLERATING WELL. ALL NEEDS ATTENDED. SAFETY MAINTAINED. CALL LIGHT WITHIN REACH.
[2017-02-22] MEDS: SUCRALFATE 1 G/10 ML LIQUID UDC PO SCH ×2 (06:25→12:00)
[2017-02-22] MEDS: OXYCODONE HCL 20 MG TAB.SR.12H PO SCH (08:36)
[2017-02-22] MEDS: FAMOTIDINE 20 MG TABLET PO SCH (08:36)
--- NOTE | 2017-02-22 12:36 | NUR ---
Nurses Note, AMA Patient stated needed to go to bank, to [employer], patient will sign Against Medical Advice, Dr Roney Raines was notified, he was in the emergency room, midline was removed. Patient is angry, she states needs to pay her rent, and deposit her check. Patient left the floor twice already. Nursing Agency Operator Fredis spoke with the patient, Infectious Disease Mima spoke with the patient, hospital policy, patient cannot leave the hospital. Patient is getting IV zosyn and IV Vancomycin.
--- NOTE | 2017-02-22 12:58 | NUR ---
Diet has been advance to full liquid on 02/21/17, patient was tolerating current diet, eating 25-100% of meals. Unable to re-assess patient nutrition care, as patient left AMA today. Addendum: 02/22/17 at [address] Amended: Links added.
== END 2017-02-22 12:35 | disposition left against medical advice (07) | DRG 241 ==
LOC: ER 14:39 → MED 20:09
PROVIDERS: ATTEND Nurse Practitioner Acute Care
PROC: 05H533Z Insertion of Infusion Device into Right Subclavian Vein, Percutaneous Approach (ICD-10-PCS; 2017-02-13)
PROC: 0DBA8ZX Excision of Jejunum, Via Natural or Artificial Opening Endoscopic, Diagnostic (ICD-10-PCS; 2017-02-14)
PROC: 0W3P8ZZ Control Bleeding in Gastrointestinal Tract, Via Natural or Artificial Opening Endoscopic (ICD-10-PCS; principal; 2017-02-17 09:40)
DX: K28.4 Chronic or unspecified gastrojejunal ulcer with hemorrhage (principal); A41.9 Sepsis, unspecified organism; N39.0 Urinary tract infection, site not specified; E87.0 Hyperosmolality and hypernatremia; Z90.3 Acquired absence of stomach [part of]; D62 Acute posthemorrhagic anemia; E86.0 Dehydration; F41.9 Anxiety disorder, unspecified; E87.6 Hypokalemia; F32.9 Major depressive disorder, single episode, unspecified; Z87.11 Personal history of peptic ulcer disease; I70.0 Atherosclerosis of aorta; Z72.0 Tobacco use
CPT/HCPCS: 36415; 43235; 71045; 83690; 83735; 84100; 85025; 85730; 86850; 86900; 86901; 86920; 87040; 87077; 87086; 87400; 93005; A4217; A4663; C9113; J1170; J2270; J2354; J2405; J2543; J3370; J3475; J3490; J7030; J7040; J7042; J7050; J7060; J7120; P9016-BL; P9021; Q9951; Q9967

== ENCOUNTER 2017-02-22 13:32 | Emergency (ER) | payer MEDICAID ==
[~2017-02-22] VITALS: Ht 175.3 cm; Wt 56.7 kg
--- NOTE | 2017-02-22 14:18 | NUR ---
PT WAS EVALUATED BY DR IGLESIAS. PT WAS D/C TO HOME. D/C INSTRUCTIONS GIVEN TO THE PT.
[2017-02-22] MEDS ORDERED: ONDANSETRON ODT 4 MG TAB.RAPDIS SL ONE (14:30)
[2017-02-22] MEDS ORDERED: HYDROCODONE/APAP 10-325 MG TABLET PO ONE (14:30)
[2017-02-22 14:33] VITALS: BP 125/69
[2017-02-22] MEDS ORDERED: HYDROCODONE/APAP 10-325 MG TABLET ONE (14:39)
[2017-02-22] MEDS ORDERED: ONDANSETRON ODT 4 MG TAB.RAPDIS ONE (14:40)
== END 2017-02-22 14:34 | disposition home or self-care (01) ==
LOC: ER 13:36
DX: K92.0 Hematemesis (principal); Z88.8 Allergy status to other drugs, medicaments and biological substances
CPT/HCPCS: 99283; A4663; Q0162